=== PATIENT | female | born 1985 | race Caucasian/White ===

== ENCOUNTER 2017-12-25 19:53 | Emergency (ER) | payer OTHER ==
[2017-12-25 20:11] VITALS: BMI 28.8
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
[2017-12-25] MEDS ORDERED: BACTRIM DS TAB PO ONE ×2 (21:52→21:56)
[2017-12-25] MEDS ORDERED: PREDNISONE TAB 20 MG PO ONE ×2 (21:52→21:56)
[2017-12-25] MEDS ORDERED: VISTARIL PO ONE ×2 (21:52→21:56)
[2017-12-25 22:10] VITALS: BP 182/68
== END 2017-12-25 22:10 | disposition home or self-care (01) ==
LOC: ER 20:16
DX: T78.40XA Allergy, unspecified, initial encounter (principal); R21 Rash and other nonspecific skin eruption
CPT/HCPCS: 99282; Q0177; J7506